=== PATIENT | male | born 1965 | race Caucasian/White ===

== ENCOUNTER 2017-06-10 02:47 | Emergency (ER) | payer OTHER ==
[2017-06-10 03:26] VITALS: BP 162/92; PULSE 112; RESP 18; TEMP 98.7
== END 2017-06-10 03:26 | disposition home or self-care (01) ==
LOC: EC 02:47
DX: Z02.83 Encounter for blood-alcohol and blood-drug test (principal)

== ENCOUNTER 2019-01-11 02:02 | Emergency (ER) | payer OTHER ==
[2019-01-11 02:12] VITALS: BP 182/90; PULSE 94; RESP 20; TEMP 98
[2019-01-11] MEDS ORDERED: DIPH,PERTUS(ACELL)TETVAC-LF 0.5 ML VIAL IM ONE (02:18)
[2019-01-11] MEDS: LIDOCAINE 1% INJ 10MG/ML (20 ML MDV) SQ ONE ×2 (02:24→02:47)
[2019-01-11] MEDS ORDERED: TOPICAL SKIN ADHESIVE 1 EACH AMP TOPICAL ONE (02:27)
[2019-01-11] MEDS ORDERED: WATER FOR IRRIG, STERILE 1,000 ML BTL IRRIGATION STA (02:48)
--- NOTE | 2019-01-11 02:50 | ED ---
Wound/Laceration HPI - General Chief Complaint: Wound/Laceration Stated Complaint: Nose Injury, [facility] Time Seen by Provider: 01/11/19 02:13 Source: patient, family Mode of arrival: ambulatory Limitations: no limitations - History of Present Illness Initial Comments: 53-year-old male patient presents to the emergency department today for evaluation of laceration to the nasal bridge. Patient states he is at work approximately an hour ago when he walked into an open door and cut his nose. Patient states they did apply quick clot. He denies any fall or other injury with this. He denies any loss of consciousness. Patient is unsure of his last tetanus vaccine was administered.Patient denies any headache, neck pain, back pain, chest pain, shortness of breath, dizziness, weakness, abdominal pain, nausea, vomiting, or difficulties with bowel movements or urination. - Related Data Home Medications Medication Instructions Recorded Confirmed No Known Home Medications 06/10/17 06/10/17 Allergies Allergy/AdvReac Type Severity Reaction Status Date / Time No Known Allergies Allergy Verified 01/11/19 02:12 Review of Systems ROS Statement: Those systems with pertinent positive or pertinent negative responses have been documented in the HPI. ROS Other: All systems not noted in ROS Statement are negative. Past Medical History Past Medical History: Hypertension History of Any Multi-Drug Resistant Organisms: None Reported Past Surgical History: No Surgical Hx Reported Past Psychological History: No Psychological Hx Reported Smoking Status: Never smoker Past Alcohol Use History: Occasional Past Drug Use History: None Reported General Exam Limitations: no limitations General appearance: alert, in no apparent distress, other (Social well-developed, well-nourished male male patient in no acute distress. Vital signs upon presentation are temperature 98.2F, pulse 94, respirations 20, blood pressure 182/90, pulse ox 98% on room air.) Eye exam: Present: normal appearance, PERRL, EOMI. Absent: scleral icterus, conjunctival injection, periorbital swelling ENT exam: Present: normal exam, normal oropharynx, mucous membranes moist, other (Patient has 2.5 cm laceration noted to the bridge of the nose. No bony step- off, deformity, or tenderness to palpation of the nasal bridge.) Respiratory exam: Present: normal lung sounds bilaterally. Absent: respiratory distress, wheezes, rales, rhonchi, stridor Cardiovascular Exam: Present: regular rate, normal rhythm, normal heart sounds. Absent: systolic murmur, diastolic murmur, rubs, gallop, clicks Neurological exam: Present: alert, oriented X3, CN II-XII intact Psychiatric exam: Present: normal affect, normal mood Skin exam: Present: warm, dry, intact, normal color. Absent: rash Course Vital Signs 01/11/19 02:06 Temperature 98 F Pulse Rate 94 Respiratory 20 Rate Blood Pressure 182/90 O2 Sat by Pulse 98 Oximetry Procedures - Laceration Laceration #1 Consent Obtained: verbal consent Indication: laceration Site: face (Nasal bridge) Description: linear Depth: simple, single layer Pre-repair: irrigated extensively Type of Sutures: other (Exofin) Patient Tolerated Procedure: well, no complications Additional Comments: 2.5 cm in length Medical Decision Making - Medical Decision Making 53-year-old male patient presents to the emergency department today for evaluation of laceration to the nasal bridge. Physical examination did reveal 2.5 cm laceration, bleeding controlled. This was repaired using skin adhesive after irrigation. This was well approximated. Patient will be discharged to follow-up with [facility] for recheck in 1-2 days. Return parameters discussed in detail. He is educated regarding signs or symptoms of infection. He verbalizes understanding. Disposition Clinical Impression: Facial laceration Disposition: HOME SELF-CARE Condition: Good Instructions (If sedation given, give patient instructions): Skin Adhesive Care (ED), Facial Laceration (ED) Additional Instructions: Do not pick or pull at glue. Do not submerge in water however showering is okay. Monitor for signs of infection including redness, swelling, drainage of pus, fever, or chills. Follow-up she primary care physician or employee [facility] for recheck in 1-2 days. Return to the emergency department immediately for any new, worsening, or concerning symptoms. Is patient prescribed a controlled substance at d/c from ED?: No Referrals: Earle Garcia MD [Primary Care Provider] - 1-2 days Time of Disposition: 02:50
== END 2019-01-11 02:57 | disposition home or self-care (01) ==
LOC: EC 02:02
DX: S01.21XA Laceration without foreign body of nose, initial encounter (principal); Z23 Encounter for immunization; W22.03XA Walked into furniture, initial encounter; Y92.69 Other specified industrial and construction area as the place of occurrence of the external cause; Y99.0 Civilian activity done for income or pay
CPT/HCPCS: 12011; 90471; 90715; 99282